=== PATIENT | male | born 1985 | race Hispanic/Latino ===

== ENCOUNTER 2017-11-18 19:28 | Emergency (ER) | payer SELFPAY | END 2017-11-19 00:34 | disposition home or self-care (01) | LOC: EDH 19:28 | DX: R10.2 Pelvic and perineal pain (principal) | CPT/HCPCS: 99281 ==

== ENCOUNTER 2018-01-12 11:11 | Emergency (ER) | payer SELFPAY ==
[2018-01-12 12:30] LABS: BASOPHILS % (AUTO) 0.9 % (0.0-5.0); EOSINOPHILS % (AUTO) 0.9 % (0.0-8.0); HEMATOCRIT 45.7 % (42-54); LYMPHOCYTES % (AUTO) 15.2 % (21.0-51.0); MEAN CORPUSCULAR HEMOGLOBIN 31.9 pg (27.0-33.0); MEAN CORPUSCULAR HGB CONC 34.9 g/dL (32.0-36.0); MEAN CORPUSCULAR VOLUME 91.3 fL (79-99); MONOCYTES % (AUTO) 6.6 % (3.0-13.0); NEUTROPHILS % (AUTO) 76.4 % (40.0-77.0); PLATELET COUNT (AUTO) 185 K/uL (130-400); RED CELL DISTRIBUTION WIDTH 13.4 % (11.0-15.5); WHITE BLOOD COUNT (AUTO) 9.5 K/uL (4.8-10.8)
[2018-01-12] MEDS ORDERED: AMOXICILLIN/POTASSIUM CLAV 875-125 TABLET PO ONE (13:19)
[2018-01-12] MEDS ORDERED: IBUPROFEN 200 MG TAB ONE (13:19)
[2018-01-12] MEDS ORDERED: IBUPROFEN 400 MG TABLET ONE (13:19)
== END 2018-01-12 13:25 | disposition home or self-care (01) ==
LOC: EDH 11:11
DX: J02.9 Acute pharyngitis, unspecified (principal); R13.10 Dysphagia, unspecified; I10 Essential (primary) hypertension
CPT/HCPCS: 36415; 70360; 70490; 71046; 85025; 87880

== ENCOUNTER 2019-02-25 13:54 | Emergency (ER) | payer SELFPAY ==
[2019-02-25] MEDS ORDERED: SIMETHICONE 80 MG TAB.CHEW ONE (14:39)
[2019-02-25] MEDS ORDERED: HYOSCYAMINE SULFATE 0.125 MG TAB.SUBL SL ONE (14:40)
[2019-02-25] MEDS ORDERED: ACETAMINOPHEN EXTRA STRENGTH 500 MG TABLET ONE (14:40)
[2019-02-25] MEDS ORDERED: ONDANSETRON ODT 4 MG TAB ONE (14:41)
[2019-02-25 15:01] LABS: BASOPHILS % (AUTO) 0.6 % (0.0-5.0); EOSINOPHILS % (AUTO) 0.1 % (0.0-8.0); HEMATOCRIT 44.3 % (42-54); LYMPHOCYTES % (AUTO) 6.5 % (21.0-51.0); MEAN CORPUSCULAR HEMOGLOBIN 32.5 pg (27.0-33.0); MEAN CORPUSCULAR VOLUME 92.7 fL (79-99); MONOCYTES % (AUTO) 5.3 % (3.0-13.0); NEUTROPHILS % (AUTO) 87.5 % (40.0-77.0); PLATELET COUNT (AUTO) 167 K/uL (130-400); RED BLOOD CELL COUNT(AUTO) 4.77 MIL/uL (4.50-6.20); RED CELL DISTRIBUTION WIDTH 13.1 % (11.0-15.5); WHITE BLOOD COUNT (AUTO) 12.1 K/uL (4.8-10.8)
[2019-02-25 15:12] LABS: CREATININE 1.2 mg/dL (0.5-1.5); POTASSIUM 3.3 mmol/L (3.5-5.1)
[2019-02-25 15:16] LABS: ALBUMIN 3.6 g/dL (3.5-5.0); BILIRUBIN,TOTAL 0.7 mg/dL (0.2-1.0); TOTAL PROTEIN, SERUM 7.2 g/dL (6.0-8.3)
[2019-02-25] MEDS ORDERED: MAGNESIUM OXIDE 400 MG TABLET PO ONE (15:32)
[2019-02-25] MEDS ORDERED: POTASSIUM CHLORIDE 20 MEQ ERTAB PO ONE (15:32)
== END 2019-02-25 15:48 | disposition home or self-care (01) ==
LOC: EDH 13:54
DX: E87.6 Hypokalemia (principal); R11.2 Nausea with vomiting, unspecified; R19.7 Diarrhea, unspecified; R50.9 Fever, unspecified; I10 Essential (primary) hypertension
CPT/HCPCS: 36415; 80053; 83690; 85025

== ENCOUNTER 2024-07-29 15:55 | Emergency (ER) | payer BC ==
[~2024-07-29] VITALS: Ht 180.3 cm; Wt 117.9 kg
--- NOTE | 2024-07-29 16:24 | EKG ---
[facility] Test Date: 2024-07-29 Test Time: 16:19:28 Pat Name: ASHKAN ASCENCIO Department: ED Room: Gender: M Brand Advisor: [id number] : 1985 Requested By: LIAM GRAHAM Order Number: [id number] Reading MD: Desiree Jara Measurements Intervals [place] Rate: 106 P: 43 TX: 148 QRS: 13 QRSD: 82 T: -14 QT: 359 QTc: 478 Interpretive Statements Sinus tachycardia Left ventricular hypertrophy No previous ECG available for comparison Electronically Signed On 07-30-2024 17:35:06 CLINICAL ACCOUNT SPECIALIST by Desiree Jara Please click the below link to view image of tracing.
[2024-07-29] MEDS: LACTATED RINGERS 1000ML 1,000 ML IV ONE (16:30)
--- NOTE | 2024-07-29 17:57 | ERN ---
General Chief Complaint: Mechanical Fall Stated Complaint: FALL Time Seen by MD: 15:57 Source: patient History of Present Illness Initial Comments Patient is a 39-year-old male coming in to be evaluated after he had a slip and a fall on the tub. He states he fell down hit himself in the right hip in the back of the head. Also woozy afterwards. No loss of consciousness. Allergies: Coded Allergies: No Known Drug Allergies (Unverified Allergy, Unknown, 07/29/24) Past Medical History Past Medical History: Hypertension Past Surgical History: None ROS Dictation CONSTITUTIONAL: No chills, no fever, no weakness, no diaphoresis, no malaise. HEAD/FACE: No signs of trauma. EENT: No eye pain, no blurred vision, no tearing, no double vision, no ear pain, no ear discharge, no nose pain, no nasal congestion, no throat pain, no throat swelling, no mouth pain. RESPIRATORY: No cough, no orthopnea, no SOB, no stridor, no wheezing. CARDIOVASCULAR: No chest pain, no edema, no palpitations, no syncope. GASTROINTESTINAL/ABDOMINAL: No abdominal pain, no constipation, no diarrhea, no nausea, no vomiting. GENITOURINARY: No abnormal discharge, no dysuria, no frequent urination, no hematuria. No complaints of pain in the genitals. MUSCULOSKELETAL: No back pain, no gout, no joint pain, no joint swelling, no muscle pain, no muscle stiffness, no neck pain. INTEGUMENTARY: No change in color, no change in hair/nails, no dryness, no lesion, no lumps, no rash. NEUROLOGICAL/PSYCH: No anxiety, not depressed, no emotional problem, no headach e, no numbness, no pre-existing deficit, no history of seizures, no tremors, no weakness. HEMATOLOGIC/LYMPHATIC: Not anemic, no history of blood clots, no apparent bleeding, no bruising, glands not swollen. All Systems Negative, Except as Noted. Physical Exam Physical Exam Dictation VITAL SIGNS: Reviewed. GENERAL APPEARANCE: Alert, oriented x3, no acute distress, obese. HEAD AND FACE: Non-traumatic. EYES: PERRL, pink conjunctivas, eyelid no trauma, anterior chamber clear. EARS: Pinnas intact and no signs of trauma or erythema. Ear canals clear and no discharge. TMs no erythema. NOSE: No discharge, no bleeding. OROPHARYNX: Mouth normal, teeth no caries, tongue pink. Pharynx clear, no erythema. Tonsils no exudates, no abscesses noted. Mucous membrane moist. NECK: Supple, non-tender, no thyromegaly, no masses, no JVD, no bruits. BREAST: Deferred. CHEST: No tenderness, no crepitus, no paradoxical movement, no retractions. LUNGS: Clear, well-ventilated, symmetric, no rales, no wheezing, no rhonchi, no stridor, good breath sounds bilaterally. HEART: Regular rate, regular rhythm, no murmur, no gallops. VASCULAR: No peripheral edema. ABDOMEN: Soft, positive bowel sounds, nondistended, no guarding, nontender, no rebound, no masses no hepatomegaly, no splenomegaly, no Ibarra's sign, no hernias. RECTAL: Deferred. GENITAL: Deferred. NEUROLOGICAL: Normal speech, gross motor function intact, gross sensory function intact. MUSCULOSKELETAL: Neck nontender, full range of motion, back nontender, full range of motion. EXTREMITIES: Nontender, full range of motion. Right hip pain SKIN: Color pink, dry, no turgor, no rash, no lacerations, no abrasions, no contusions. LYMPHATICS: Deferred. Results Laboratory and Microbiology Labs Reviewed?: Yes EKG/XRAY/US/CT/MRI EKG Comment 07/29/2022 time 4:19 p.m. Ventricular rate [address] wave elevation or depression DE 148 X-RAY Comment X-ray right hip-chest x-ray-NAD CT Scan Comment CT-of the head NAD MDM MDM: Differential diagnosis: Fall, right hip contusion, head injury Patient is a 39-year-old gentleman coming in to be evaluated after he had a slip and a fall in the shower. X-rays did not disclose acute findings either did CT. Patient will be discharged with a diagnosis of fall and hip contusion. ED Course Orders Procedure Category Date Status Time Cbc With Differential LAB 07/29/24 Logged 16:09 Prothrombin Time With LAB 07/29/24 Logged INR 16:09 B-Type Natriuretic LAB 07/29/24 Logged Peptide 16:09 Chest 1vw RAD 07/29/24 Taken 16:09 12 Lead Ekg Tracing- EKG 07/29/24 Complete Technical 16:09 Lactated Ringers PHA 07/29/24 Complete 1000ml (Lactated 16:30 Magnesium LAB 07/29/24 Logged 16:09 Creatine Kinase, Total LAB 07/29/24 Logged 16:09 Troponin I High LAB 07/29/24 Logged Sensitivity 16:09 Basic Metabolic Panel LAB 07/29/24 Logged 16:09 Ct Head/Brain W/O CT 07/29/24 Taken Contrast 16:09 Hip Unilat 2-3vw Right RAD 07/29/24 Taken 16:09 Drug Screen Urine LAB 07/29/24 Logged 16:14 Current Medications Medications (Trade) Dose Ordered Sig/Ana Maria Route PRN Reason Start Time Stop Time Status Last Admin Dose Admin Lactated Ringer's 1,000 ml @ 0 mls/hr ONCE ONCE IV 07/29/24 16:30 07/29/24 16:31 DC Vital Signs Date Time Temp Pulse Resp B/P (MAP) Pulse Ox O2 Delivery O2 Flow Rate FiO2 07/29/24 15:57 99.3 120 18 122/54 97 Room Air 0 07/29/24 15:57 99.3 120 18 122/54 97 Room Air* 0 21 DX & DISP Disposition: Discharge Departure Impression: Primary Impression: Accident due to mechanical fall without injury Additional Impressions: Contusion, hip, Injury, head Condition: Stable Additional Instructions: FOLLOW-UP WITH PRIMARY CARE PROVIDER IN 1 TO 2 DAYS. TAKE MEDICATIONS DIRECTED HERE IN THE EMERGENCY ROOM. OKAY TO CONTINUE HOME MEDICATIONS UNLESS OTHERWISE DISCUSSED DURING YOUR VISIT IN THE EMERGENCY ROOM TODAY. RETURN TO YOUR NEAREST EMERGENCY ROOM IF SYMPTOMS WORSEN OR IF THERE IS NO IMPROVEMENT. CALL 911 IF YOU NEED IMMEDIATE ASSISTANCE. TAKE TYLENOL [id number] NEEDED AND IF NO CONTRAINDICATIONS ARE PRESENT. INCREASE ORAL HYDRATION. A WOUND CULTURE OR URINE CULTURE WAS ORDERED HERE IN THE EMERGENCY ROOM DEPARTMENT PLEASE FOLLOW-UP WITH PRIMARY CARE PROVIDER AND ADVISE THEM TO GET REPEAT PORTS FROM OUR FACILITY. IF YOU HAD ANY ANALI WRAP/SPLINTS THAT WERE APPLIED HERE, PLEASE DO NOT REMOVE THEM UNTIL YOU SEE YOUR PRIMARY CARE OR SPECIALTY. Referrals: Referrals: SELF,REFERRAL (PCP) JANICE LEBRON MD, ISABEL MD Jul 29, 2024 17:57
[2024-07-29 18:47] VITALS: BP 122/50; PULSE 90; RESP 16; TEMP 99.5; O2SAT 99
--- NOTE | 2024-07-29 20:39 | HMCIMG ---
CT HEAD/BRAIN W/O CONTRAST CLINICAL HISTORY: FALL COMPARISON: None TECHNIQUE: Multiple sequential axial images of the head were obtained from the base of the skull through vertex. CT was performed with one or more of the following dose reduction techniques: automated exposure control, adjustment of the mA and/or kV according to patient size, or use of iterative reconstruction technique FINDINGS: The brain parenchyma and CSF spaces are unremarkable. The orbital contents, paranasal sinuses and mastoid air cells are within normal limits. The calvarium is intact. IMPRESSION: Normal study
--- NOTE | 2024-07-29 21:32 | HMCIMG ---
CHEST 1VW CLINICAL HISTORY: FALL COMPARISON: 01/12/2018 TECHNIQUE: Single view of the chest was obtained. FINDINGS: Lungs are clear. The cardiac size and mediastinum are unremarkable. The bony structures are within normal limits. IMPRESSION: No acute cardiopulmonary process identified.
--- NOTE | 2024-07-29 21:40 | HMCIMG ---
HIP UNILAT 2-3VW RIGHT CLINICAL HISTORY: FALL COMPARISON: None TECHNIQUE: AP and lateral images were obtained. FINDINGS: No obvious fracture or dislocation. No joint effusion. The soft tissues appear unremarkable. No radiopaque foreign bodies. IMPRESSION: No acute findings.
== END 2024-07-29 18:55 | disposition home or self-care (01) ==
LOC: EDH 15:55
DX: S70.01XA Contusion of right hip, initial encounter (principal); I10 Essential (primary) hypertension; R42 Dizziness and giddiness; Z20.822 Contact with and (suspected) exposure to COVID-19; W18.39XA Other fall on same level, initial encounter; Y93.89 Activity, other specified; Y92.89 Other specified places as the place of occurrence of the external cause; Y99.8 Other external cause status
CPT/HCPCS: 70450; 71045; 73502; 93005; 99284

== ENCOUNTER 2024-10-01 23:18 | Emergency (ER) | payer BC ==
[~2024-10-01] VITALS: Ht 180.3 cm; Wt 122.5 kg
[2024-10-02] MEDS: FAMOTIDINE 20MG VIAL IV ONE
[2024-10-02] MEDS: Solu-medROL 125MG VIAL IVP ONE
[2024-10-02] MEDS: DiphenhydrAMINE HCL 50 MG/ML VIAL IV ONE
--- NOTE | 2024-10-02 00:18 | ERN ---
ED Note History of Present Illness Stated Complaint: RASH, ITCHING Chief Complaint: Skin Rash/Abscess Time Seen by MD: 23:41 Time Seen by Midlevel: 23:41 Dictation: The patient is a 39-year-old male with no past medical history who presents to the emergency department with generalized rash onset three weeks ago. Patient reports rashes on and off and reports that it gets for these with Benadryl. Reports rash to be itchy. Denies any shortness. Denies any fevers Allergies: Coded Allergies: No Known Drug Allergies (Unverified Allergy, Unknown, 07/29/24) Home Meds Active Scripts Diphenhydramine HCl (Benadryl) 50 Mg Cap, 50 MG PO TID PRN for ALLERGIC REACTION for 10 Days, #30 CAP 0 Refills Prov:WHITNEY BANKS COUNTER INTELLIGENCE 10/02/24 Past Medical History Past Medical History: Hypertension Surgical History: None RN Note Reviewed/Agreed w/PFSH: Yes Review of System Dictation Constitutional: Negative for fever,chills, and weight loss Eyes: Negative for injury, pain,redness, and discharge ENT: Negative for injury,pain or swelling Cardiovascular: Negative for chest pain, palpitations, and edema Respiratory: Negative for shortness of breath, cough, and wheezing, Abdomen/GI: Negative for abdominal pain, nausea, vomiting, diarrhea, and consti pation Back: Negative for injury and pain : Negative for injury, bleeding and discharge MS/Extremity: Negative for injury and deformity Skin: Negative for and discoloration positive for rash Neuro: Negative for headache, weakness, numbness, tingling, and seizure Psych: Negative for suicide ideation, homicidal ideation, and hallucinations Initial Vital Sign VS Vital Signs Date Time Temp Pulse Resp B/P (MAP) Pulse Ox O2 Delivery O2 Flow Rate FiO2 10/01/24 23:19 97.0 83 16 215/124 98 Room Air 10/01/24 23:33 0 21 Physical Exam Dictation Vital Signs reviewed General Appearance: Alert, oriented x 3, no acute distress, well developed, nourished. Head and Face: non-traumatic. Eyes: PERRL, pink conjunctivas, eyelid no trauma, anterior chamber with arcus senilis. Ears: Pinnas intact and no signs of trauma or erythema ear canals clear and no discharge TM no erythema Nose: No discharge, no bleeding. Oropharynx: Mouth normal, tongue pink. pharynx clear,no erythema, tonsils no exudates, no abscesses noted, mucous membrane moist Neck: Supple, non-tender, no thyromegaly, no masses, no JVD, no bruits Breast:Deferred Chest:No tenderness, no crepitus, no paradoxical movement, no retractions Lungs:Clear, well-ventilated, symmetric, no rales, no wheezing, no rhonchi, no stridor, good breath sounds bilaterally Heart: Regular rate, regular rhythm, no murmur, no gallops Vascular: no peripheral edema, Abdomen: Soft, positive bowel sounds, nondistended, no guarding, nontender, no rebound, no masses no hepatomegaly, no splenomegaly, no Ibarra's sign, no hernias. Rectal: Deferred Genital: Deferred Neurological: Normal speech, motor function intact, sensory function intact Musculoskeletal: Neck nontender, full range of motion, back nontender, full range of motion, Extremities: nontender, full range of motion Skin: Color pink, dry, no turgor, , no lacerations, no abrasions, no contusions. Hives to chest, abdomen, back, bilateral upper extremities Lymphatic: Deferred Results (Laboratory/Radiology) Labs Reviewed?: Yes ED Course ED Course Orders Procedure Category Date Status Time Diphenhydramine Hcl PHA 10/02/24 Complete (Benadryl Inj) 00:00 Famotidine 20mg Vial PHA 10/02/24 Complete (Pepcid 20mg Vial) 00:00 Methylprednisolone PHA 10/02/24 Complete Succ 125mg (Solu-Medr 00:00 Current Medications Medications (Trade) Dose Ordered Sig/Ana Maria Route PRN Reason Start Time Stop Time Status Last Admin Dose Admin Diphenhydramine HCl (BENAdryl INJ) 25 mg ONCE ONCE IV 10/02/24 00:00 10/02/24 00:01 DC 10/02/24 00:00 Famotidine (Pepcid 20mg Vial) 20 mg ONCE ONCE IV 10/02/24 00:00 10/02/24 00:01 DC 10/02/24 00:00 Methylprednisolone Sodium Succinate (Solu-medROL 125MG) 125 mg ONCE ONCE IVP 10/02/24 00:00 10/02/24 00:01 DC 10/02/24 00:00 Vital Signs Date Time Temp Pulse Resp B/P (MAP) Pulse Ox O2 Delivery O2 Flow Rate FiO2 10/02/24 00:36 98.2 68 18 156/85 98 Room Air* 0 21 10/01/24 23:33 98.1 67 18 207/100 100 Room Air* 0 21 10/01/24 23:19 97.0 83 16 215/124 98 Room Air Medical Decision Making MDM The patient is a 39-year-old male with no past medical history who presents to the emergency department with generalized rash onset three weeks ago. Patient reports rashes on and off and reports that it gets for these with Benadryl. Reports rash to be itchy. Denies any shortness. Denies any fevers Patient in no acute distress, no edema, clear lung sounds, Will be discharge to follow up with PCP. Differential diagnosis: Allergic reaction, contact dermatitis, scabies Need for hospitalization: Patient does not meet criteria for hospitalization. There are no social concerns with this patient. DX & DISP Disposition: Discharge Departure Impression: Primary Impression: Acute urticaria Condition: Stable Scripts Diphenhydramine HCl (Benadryl) 50 Mg Cap 50 MG PO TID PRN for ALLERGIC REACTION for 10 Days, #30 CAP 0 Refills Prov: WHITNEY BANKS COUNTER INTELLIGENCE 10/02/24 Additional Instructions: Please take your medications as prescribed. If symptoms worsen please return to ER. FOLLOW-UP WITH PRIMARY CARE PROVIDER IN 1 TO 2 DAYS. TAKE MEDICATIONS DIRECTED HERE IN THE EMERGENCY ROOM. OKAY TO CONTINUE HOME MEDICATIONS UNLESS OTHERWISE DISCUSSED DURING YOUR VISIT IN THE EMERGENCY ROOM TODAY. RETURN TO YOUR NEAREST EMERGENCY ROOM IF SYMPTOMS WORSEN OR IF THERE IS NO IMPROVEMENT. CALL 911 IF YOU NEED IMMEDIATE ASSISTANCE. TAKE TYLENOL OR MOTRIN [id number] NEEDED AND IF NO CONTRAINDICATIONS ARE PRESENT. INCREASE ORAL HYDRATION. A WOUND CULTURE OR URINE CULTURE WAS ORDERED HERE IN THE EMERGENCY ROOM DEPARTMENT PLEASE FOLLOW-UP WITH PRIMARY CARE PROVIDER AND ADVISE THEM TO GET REPEAT PORTS FROM OUR FACILITY. IF YOU HAD ANY ANALI WRAP/SPLINTS THAT WERE APPLIED HERE, PLEASE DO NOT REMOVE THEM UNTIL YOU SEE YOUR PRIMARY CARE OR SPECIALTY. Referrals: SELF,REFERRAL (PCP) Time of Disposition: 00:30 I have reviewed the case, and I agree with, Diagnosis and Plan I performed a substantive portion of the visit. I have reviewed and personally made and approve the management plan that is documented in the notes by myself with JACQUES/resident. I acknowledged full responsibility for the patient's management plan. WHITNEY BANKS Oct 02, 2024 00:17 ERNESTINE DAVE DO Oct 02, 2024 02:30
[2024-10-02] MEDS ORDERED: DIPH50 PO (00:31)
[2024-10-02 00:36] VITALS: BP 156/85; PULSE 68; RESP 18; TEMP 98.2; O2SAT 98
== END 2024-10-02 00:39 | disposition home or self-care (01) ==
LOC: EDH 23:18
DX: L50.9 Urticaria, unspecified (principal); I10 Essential (primary) hypertension
CPT/HCPCS: 99284; 96374; 96375; J2919; J1200; J3490

== ENCOUNTER 2024-10-20 09:33 | Emergency (ER) | payer BC ==
[~2024-10-20] VITALS: Ht 180.3 cm; Wt 113.4 kg
[~2024-10-20 09:33] MED LIST: DIPH50 PO
[2024-10-20 10:02] LABS: RAPID GROUP A STREP negative (NEGATIVE)
[2024-10-20 10:13] LABS: COVID19 (SARS ANTIGEN RAPID) PRESUMPTIVE NEGATIVE (NEGATIVE); INFLUENZA TYPE B Negative For Type B (NEGATIVE)
--- NOTE | 2024-10-20 10:16 | ERN ---
ED Note History of Present Illness Stated Complaint: FLU LIKE SYMPTOMS X 3 DAYS Chief Complaint: Flu Symptoms Time Seen by MD: 10:07 Dictation: Patient is a 39-year-old male coming in today with flu-like symptoms to include dry cough, clear runny nose with sore throat and painful swallowing for the last three days. No nausea no vomiting no diarrhea. No loss of taste or smell states he took Tylenol prior to arrival today. No primary care doctor. Allergies: Coded Allergies: No Known Drug Allergies (Unverified Allergy, Unknown, 07/29/24) Home Meds Active Scripts Diphenhydramine HCl (Benadryl) 50 Mg Cap, 50 MG PO TID PRN for ALLERGIC REACTION for 10 Days, #30 CAP 0 Refills Prov:WHITNEY BANKS MARKETING SPECIALIST 10/02/24 Past Medical History Past Medical History: No Pertinent History Surgical History: None RN Note Reviewed/Agreed w/PFSH: Yes Review of System Dictation CONSTITUTIONAL: Negative except for HPI fever chills HEAD/FACE: Negative except for HPI EENT: Negative except for HPI clear rhinitis with sore throat RESPIRATORY: Negative except for HPI dry cough GASTROINTESTINAL/ABDOMINAL: Negative except for HPI GENITOURINARY: Negative except for HPI MUSCULOSKELETAL: Negative except for HPI INTEGUMENTARY: Negative except for HPI NEUROLOGICAL/PSYCH: Negative except for HPI HEMATOLOGIC/LYMPHATIC: Negative except for HPI All Systems Negative, Except as noted above. 13 point review of systems assessed and all negative except for above. Initial Vital Sign VS Vital Signs Date Time Temp Pulse Resp B/P (MAP) Pulse Ox O2 Delivery O2 Flow Rate FiO2 10/20/24 09:35 98.8 70 20 169/105 97 Room Air 0 Physical Exam Dictation Vital Signs reviewed General Appearance: Alert, oriented x 3, mild acute distress, well developed, nourished. Head and Face: non-traumatic. Eyes: PERRL, pink conjunctivas, eyelid no trauma, anterior chamber with arcus senilis. Ears: Pinnas intact and no signs of trauma or erythema ear canals clear and no discharge TM no erythema Nose: Clear discharge, no bleeding. Oropharynx: Mouth normal, tongue pink, pharynx clear,no erythema, tonsils 2/4 bilaterally and cryptic, no abscesses noted, mucous membrane moist uvula midline Neck: Supple, non-tender, no thyromegaly, no masses, no JVD, no bruits Breast:Deferred Chest:No tenderness, no crepitus, no paradoxical movement, no retractions Lungs:Clear, well-ventilated, symmetric, no rales, no wheezing, no rhonchi, no stridor, good breath sounds bilaterally Heart: Regular rate, regular rhythm, no murmur, no gallops Vascular: no peripheral edema, Abdomen: Soft, positive bowel sounds, nondistended, no guarding, nontender, no rebound, no masses no hepatomegaly, no splenomegaly, no Ibarra's sign, no hernias. Rectal: Deferred Genital: Deferred Neurological: Normal speech, motor function intact, sensory function intact Musculoskeletal: Neck nontender, full range of motion, back nontender, full range of motion, Extremities: nontender, full range of motion Skin: Color pink, dry, no turgor, no rash, no lacerations, no abrasions, no contusions. Lymphatic: Deferred Results (Laboratory/Radiology) Laboratory/Radiology Laboratory Tests Test 10/20/24 09:39 Influenza Type A Antigen Positive For Type A Influenza Type B Antigen Negative For Type B SARS-CoV-2 Antigen (Rapid) PRESUMPTIVE NEGATIVE Group A Streptococcus Rapid negative (NEGATIVE) Labs Reviewed?: Yes ED Course ED Course Orders Procedure Category Date Status Time Influenza Type A & B, LAB 10/20/24 Complete Rapid 09:34 Covid19 (Sars Antigen LAB 10/20/24 Complete Rapid) 09:34 Rapid (Group A Strep) LAB 10/20/24 Complete 09:34 Vital Signs Date Time Temp Pulse Resp B/P (MAP) Pulse Ox O2 Delivery O2 Flow Rate FiO2 10/20/24 09:35 98.8 70 20 169/105 97 Room Air 0 Medical Decision Making MDM MEDICAL DECISION-MAKING BASED ON SWABS FOR FLU COVID AND STREP. PATIENT INFLUENZA A POSITIVE, WE WILL BE TREATED WITH TAMIFLU WE WILL TREAT PATIENT EMPIRICALLY FOR ACUTE TONSILLITIS UNSPECIFIED WITH AUGMENTIN GIVEN A LIST OF THE LOCAL PRIMARY CARE DOCTOR'S DX & DISP Disposition: Discharge Departure Impression: Primary Impression: Influenza A Additional Impressions: Acute tonsillitis, unspecified, Fever Condition: Stable Scripts Oseltamivir Phosphate (Tamiflu) 75 Mg Cap 75 MG PO BID for 5 Days, #1 CAP Prov: OVIDIO PALOMARES NETTING INSPECTOR 10/20/24 Ibuprofen (Ibuprofen 800 mg Tab) 800 Mg Tab 800 MG PO Q8H PRN for fever or pain, #30 TAB 0 Refills Prov: OVIDIO PALOMARES NP 10/20/24 Amoxicillin/Potassium Clav (Amox Tr-K Clv 875-125 mg Tab) 875 Mg-125 Mg Tablet 1 EACH PO BID for 10 Days, #20 TAB 0 Refills Prov: OVIDIO PALOMARES NP 10/20/24 Additional Instructions: FOLLOW-UP WITH PRIMARY CARE PROVIDER IN 1 TO 2 DAYS. TAKE MEDICATIONS DIRECTED HERE IN THE EMERGENCY ROOM. OKAY TO CONTINUE HOME MEDICATIONS UNLESS OTHERWISE DISCUSSED DURING YOUR VISIT IN THE EMERGENCY ROOM TODAY. RETURN TO YOUR NEAREST EMERGENCY ROOM IF SYMPTOMS WORSEN OR IF THERE IS NO IMPROVEMENT. CALL 911 IF YOU NEED IMMEDIATE ASSISTANCE. TAKE TYLENOL OR MOTRIN [id number] NEEDED AND IF NO CONTRAINDICATIONS ARE PRESENT. INCREASE ORAL HYDRATION. A WOUND CULTURE OR URINE CULTURE WAS ORDERED HERE IN THE EMERGENCY ROOM DEPARTMENT PLEASE FOLLOW-UP WITH PRIMARY CARE PROVIDER AND ADVISE THEM TO GET REPEAT PORTS FROM OUR FACILITY. IF YOU HAD ANY ANALI WRAP/SPLINTS THAT WERE APPLIED HERE, PLEASE DO NOT REMOVE THEM UNTIL YOU SEE YOUR PRIMARY CARE OR SPECIALTY. TAKE TAMIFLU AND AUGMENTIN DIRECTED UNTIL GONE. NO WORK FOR THE NEXT THREE DAYS. INCREASE YOUR FLUID INTAKE. Referrals: SELF,REFERRAL (PCP) Time of Disposition: 10:30 I have reviewed the case, and I agree with, Diagnosis and Plan OVIDIO PALOMARES NP Oct 20, 2024 10:16
[2024-10-20 10:27] LABS: INFLUENZA TYPE A Positive For Type A (NEGATIVE)
[2024-10-20] MEDS ORDERED: AMOX1TAB16 PO (10:31)
[2024-10-20] MEDS ORDERED: OSEL75 PO (10:31)
[2024-10-20] MEDS ORDERED: IBUP-2077 PO (10:31)
[2024-10-20 10:35] VITALS: BP 161/95; PULSE 72; RESP 20; TEMP 98.8; O2SAT 99
== END 2024-10-20 10:40 | disposition home or self-care (01) ==
LOC: EDH 09:33
DX: J10.1 Influenza due to other identified influenza virus with other respiratory manifestations (principal); Z20.822 Contact with and (suspected) exposure to COVID-19
CPT/HCPCS: 87426; 87804; 87880; 99283